=== PATIENT | female | born 2000 | race Caucasian/White ===

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

== ENCOUNTER 2018-02-02 20:04 | Emergency (ER) | payer OTHER ==
[~2018-02-02] VITALS: Ht 175.3 cm; Wt 96.0 kg
[~2018-02-02 20:04] MED LIST changes: +SPIR25TA6 PO; -SPR25 PO
[2018-02-02 20:07] VITALS: TEMP 36.7; Ht 175.3 cm; Wt 96.0 kg
[2018-02-02] MEDS ORDERED: IBUPROFEN 200 MG TAB PO STA (20:15)
[2018-02-02] MEDS ORDERED: CHOL1000 PO (20:38)
[2018-02-02] MEDS ORDERED: SUMA50TA15 PO (20:40)
--- NOTE | 2018-02-02 21:04 | DIAGNOSTIC IMAGING REPORT ---
L ANKLE MIN 3 VIEWS ROUTINE CLINICAL HISTORY: Left ankle pain.] For fracture COMPARISON: Left ankle radiographs January 16, 2017. FINDINGS: Alignment of the left ankle is anatomic. Talar dome is intact. There is no acute fracture. Mild ankle soft tissue swelling is noted. IMPRESSION: No acute fracture or dislocation of the left ankle. Electronically signed by: Rancho Enciso M.D. 02/02/2018 9:03 PM Dictated Date/Time: 02/02/2018 9:02 PM
--- NOTE | 2018-02-02 21:07 | DIAGNOSTIC IMAGING REPORT ---
L FOOT MIN 3 VIEWS ROUTINE CLINICAL HISTORY: Left foot pain. Evaluate for fracture. COMPARISON: Left foot radiographs January 16, 2017. FINDINGS: Tarsometatarsal joints are intact. No acute fracture within the left foot is identified. No osseous lesion is noted. IMPRESSION: No acute fracture or dislocation within the left foot. Electronically signed by: Rancho Enciso M.D. 02/02/2018 9:06 PM Dictated Date/Time: 02/02/2018 9:03 PM
[2018-02-02 21:32] VITALS: BP 130/81; PULSE 81; O2SAT 98
--- NOTE | 2018-02-02 22:10 | EMERGENCY ROOM VISIT NOTE ---
History Report prepared by [place]: Abram Carlisle Under the Supervision of: Dr. Kendall Contreras M.D. First contact with patient: 20:10 Chief Complaint: ANKLE PAIN Stated Complaint: LEFT ANKLE PAIN History of Present Illness The patient is a 17 year old female who presents to the Emergency Room with complaints of left ankle/foot pain for the past few hours. The patient states she was walking with her friends when she tripped and rolled her ankle backwards. She denies hitting her head and denies pain anywhere else. She denies any numbness/tingling to her foot or ankle. The patient does note she has a history of Factor 5 but isn't on any blood thinners. She denies any chance of being . Source of History: patient Onset: few hours Position: ankle (left), foot (left) Symptom Intensity: minimal Quality: ache Timing: constant Modifying Factors (Worsening): movement Modifying Factors (Relieving): rest Associated Symptoms: No LOC, No weakness, No numbness Review of Systems See HPI for pertinent positives & negatives. A total of 4 systems reviewed and were otherwise negative. Musculoskeletal: + problem reported (left ankle/foot pain) Neurologic: + problem reported (did not hit head and denies LOC), No numbness/tingling Past Medical & Surgical Medical Problems: (1) Appendectomy (2) Concussion (3) Exercise-induced asthma (4) Vesicoureteral reflux Family History Diabetes mellitus FH: cancer FH: gallbladder disease FH: heart disease FH: kidney disease FH: seizures Hypertension Social History Smoking Status: Never Smoker Alcohol Use: none Drug Use: none Marital Status: single Housing Status: lives with family Occupation Status: employed Current/Historical Medications Scheduled Cholecalciferol (Vitamin D3), 1,000 UNITS PO DAILY Fluoxetine Hcl (Prozac), 40 MG PO DAILY Multivitamin (Multivitamin), 1 TAB PO DAILY Norethindrone (Contraceptive) (Norethindrone), 0.35 MG PO DAILY Omeprazole (Prilosec), 40 MG PO DAILY Spironolactone (Spironolactone), 25 MG PO DAILY Topiramate (Topiramate), 25 MG PO BID Scheduled PRN Sumatriptan Succinate (Imitrex), 50 MG PO UD PRN for Migraine Allergies Coded Allergies: Cephalosporins (Unverified Allergy, Mild, DIFFICULTY BREATHING, 8/12/18) Sulfa Drugs (Unverified Allergy, Mild, 02/02/18) Penicillins (Verified Allergy, Unknown, AMOXICILLIN, 02/02/18) Physical Exam Vital Signs Date Time Temp Pulse Resp B/P (MAP) Pulse Ox O2 Delivery O2 Flow Rate FiO2 02/02/18 21:32 81 19 130/81 98 02/02/18 20:07 36.7 96 18 123/84 97 Room Air Physical Exam Constitutional: Vital signs reviewed. Musculoskeletal: No joint laxity. No peripheral edema. Tenderness with palpation noted along the dorsum of the foot without deformity. Normal distal pulses. No significant tenderness to the ankle. No tenderness proximal to the ankle. Integumentary: No cyanosis. Neurological: The patient is awake and alert. No focal deficits. Psychiatric: Normal affect. Medical Decision & Procedures ER Provider Diagnostic Interpretation: L ANKLE MIN 3 VIEWS ROUTINE CLINICAL HISTORY: Left ankle pain.] For fracture COMPARISON: Left ankle radiographs January 16, 2017. FINDINGS: Alignment of the left ankle is anatomic. Talar dome is intact. There is no acute fracture. Mild ankle soft tissue swelling is noted. IMPRESSION: No acute fracture or dislocation of the left ankle. L FOOT MIN 3 VIEWS ROUTINE CLINICAL HISTORY: Left foot pain. Evaluate for fracture. COMPARISON: Left foot radiographs January 16, 2017. FINDINGS: Tarsometatarsal joints are intact. No acute fracture within the left foot is identified. No osseous lesion is noted. IMPRESSION: No acute fracture or dislocation within the left foot. Medications Administered Medications (Trade) Dose Ordered Sig/Singh Route Start Time Stop Time Status Last Admin Dose Admin Ibuprofen (Advil Tab) 400 mg NOW STAT PO 02/02/18 20:15 02/02/18 20:16 DC 02/02/18 20:28 400 MG ED Course Rechecks: 2114- Reviewed x-rays with patient. She verbalized understanding. All questions answered. Patient stable upon discharge. Medical Decision This is a 17-year-old female presents with foot and ankle pain after a fall. Differential diagnosis includes foot fracture, ankle fracture, sprain. I did evaluate the patient as noted above. I did obtain x-rays of the left ankle and foot. I did review the images myself as well as the radiology reports. There is no evidence of fracture or dislocation. She has no joint laxity on examination. She was placed in a gel splint and given crutches. She was advised to follow-up with her doctor and given a work note. She was treated with Motrin here. Medication Reconcilliation Current Medication List: was personally reviewed by me Blood Pressure Screening Patient's blood pressure: Normal blood pressure Impression Primary Impression: Sprain of left foot Additional Impression: Left ankle sprain Scribe Attestation The scribe's documentation has been prepared under my direct and personally reviewed by me in its entirety. I confirm that the note above accurately reflects all work, treatment, procedures, and medical decision making performed by me. Departure Information Dispostion Home / Self-Care Referrals Maria D Mohamud M.D. (PCP) Forms HOME CARE DOCUMENTATION FORM, IMPORTANT VISIT INFORMATION Patient Instructions My [facility] Problem Qualifiers Primary Impression: Sprain of left foot Encounter type: initial encounter Qualified Codes: S93.602A - Unspecified sprain of left foot, initial encounter Additional Impression: Left ankle sprain Encounter type: initial encounter Involved ligament of ankle: unspecified ligament Qualified Codes: S93.402A - Sprain of unspecified ligament of left ankle, initial encounter
== END 2018-02-02 21:34 | disposition home or self-care (01) ==
LOC: C.EDB 20:05 → C.EDD 21:34
DX: S93.602A Unspecified sprain of left foot, initial encounter (principal); S93.402A Sprain of unspecified ligament of left ankle, initial encounter; X50.9XXA Other and unspecified overexertion or strenuous movements or postures, initial encounter; Y93.01 Activity, walking, marching and hiking; D68.2 Hereditary deficiency of other clotting factors; Z79.3 Long term (current) use of hormonal contraceptives; Z79.899 Other long term (current) drug therapy; Z88.0 Allergy status to penicillin; Z88.1 Allergy status to other antibiotic agents; Z88.2 Allergy status to sulfonamides

== ENCOUNTER 2022-06-12 07:30 | Inpatient (IN) ==
[2022-06-12] MEDS ORDERED: OXYTOCIN 30 UNITS/500 ML BAG IV PRN ×2 (07:36)
[2022-06-12] MEDS ORDERED: LIDOCAINE 1% LOCAL 20 ML VIAL INFIL PRN (07:36)
[2022-06-12] MEDS ORDERED: PENICILLIN G POTASSIUM 6 MU in DEXTROSE 5% 250 ML IV STA (08:42)
[2022-06-12 08:49] LABS: Hematocrit (blood only) 41.5 % (34.1-44.9); Hemoglobin 14.9 g/dl (12.0-16.0); Mean Corpuscular Hemoglobin 31.2 pg (25.0-34.0); Mean Corpuscular Hgb Conc 35.9 g/dL (32.0-36.0); Mean Corpuscular Volume 86.8 fL (80.0-100.0); Mean Platelet Volume 9.7 fL (9.4-12.3); Platelet Count 176 K/uL (130-400); RDW Coefficient of Variation 12.7 % (11.5-14.5); RDW Standard Deviation 40.1 fL (36.4-46.3); Red Blood Count 4.78 M/uL (3.93-5.22); White Blood Count 9.69 K/ul (4.8-10.8)
[2022-06-12] MEDS ORDERED: SODIUM CHLORIDE 0.9% 250 ML IV PRN (09:06)
[2022-06-12] MEDS: LACTATED RINGER'S 1,000 ML IV PRN ×2 (09:09→18:31)
--- NOTE | 2022-06-12 09:49 | History & Physical Report ---
Date of Service June 12, 2022 Assessment & Plan (1) : (2) Factor V Leiden mutation complicating : Plan 21 yo at 39 2/7 wga presents for IOL VSS Fetus cat 1 Labor - 35cc womack placed, pt tolerated well. Will do pit/womack GBS+, pcn ordered epidural PRN Admission and Anticipated Discharge Date Admission Date: June 12, 2022 History of Present Illness Chief Complaint: IOL Primary Care Provider: NO PCP 21 yo at 39 2/7 wga w/ MIMI by LMP presents for IOL for coordination of care due to heparin. +FM; denies regular ctx, LOF, VB. 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 SAB G2 current regular cycles denies hx STIs Allergies Allergy/AdvReac Type Severity Reaction Status Date / Time Cephalosporins Allergy Mild DIFFICULTY Verified 06/12/22 09:11 BREATHING Home Medications Medication Instructions Recorded Confirmed Type vitamin with calcium 1 tab PO DAILY #30 tabs 02/08/22 06/12/22 Rx no.72-iron 27 mg-folic acid 1 mg tablet ( Plus (calcium carbonate)) enoxaparin 40 mg/0.4 mL 40 mg subcut DAILY 04/12/22 06/12/22 History subcutaneous syringe heparin (porcine) 5,000 unit/mL (1 5,000 unit subcut BID 06/07/22 06/12/22 History mL) injection cartridge Patient History Medical History Abnormal weight gain Allergic rhinitis Anxiety and depression Asthma Chronic headaches Concussion (12/02/12) Constipation Depression with anxiety Exercise-induced asthma (12/02/12) Factor V Leiden mutation Factor V Leiden mutation complicating heterozygote status GERD without esophagitis Gout History of chicken pox Kidney stone Migraine Nephrolithiasis Oligomenorrhea Polycystic ovarian syndrome Secondary amenorrhea Surgical History S/P appendectomy S/P cholecystectomy S/P ureteral stent placement Family History Mother Hypertension Diabetes Grandmother (Maternal) Hypertension Diabetes Denies family history of Ovarian cancer Breast cancer Colorectal cancer Social History Smoking Status: Never smoker Second Hand Exposure: No; Hx Alcohol Use: No Hx Substance Use: No Preferred Language: Tajik Communication Ability: Effective Visual Impairment: Limited Hearing Ability: Normal 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 Beliefs That Will Affect Care: None marital status: Single marital status details: fob Aram Scarlett (29) [phone] Current Living Situation: Significant Other Current Living Situation Comment: Aram Scralett current occupational status: unemployed Feels Safe at Home: Yes Gender Identity: Female Assistive Devices: Glasses Physical Exam Genitourinary: OB Exam Abdomen: + vertex (confirmed by BSUS) and + estimated weight (7-8) Manual OB Exam: + cervical dilation (1.5), + cervical effacement 50% and + station -2 OB Exam Monitor Tracing: + external FHT monitor used, + external uterine monitor used (irreg) and + category I (150/mod/+accel/-decel) Results & Data ([facility]) Vital Signs (Past 12 Hours) Vital Signs Temp Pulse Resp BP 06/12/22 08:10 98.4 F 97 H 18 122/72 06/12/22 07:48 97 H 122/72 Laboratory Results OB Labs: Blood Type O Positive 11/07/21 Antibody Screen NEGATIVE 11/07/21 Hemoglobin 15.3 g/dl (12.0-16.0) 06/07/22 Hematocrit 41.7 % (34.1-44.9) 06/07/22 Mean Corpuscular Volume 87.2 fL (80.0-100.0) 06/07/22 Platelet Count 157 K/uL (130-400) 06/07/22 Rubella IgG Antibody Equivocal (Immune) L 11/07/21 Rapid Plasma Reagin Nonreactive (Nonreactive) 11/07/21 E Hepatitis B Surface Antigen. NON-REACTIVE (NON-REACTIVE) 11/07/21 Hepatitis C Antibody (EIA) NON-REACTIVE (NON-REACTIVE) 11/07/21 HIV (1&2) Ag and Ab Confirmation NON-REACTIVE (NON-REACTIVE) 11/07/21 Glucose 1 Hour 50 gm Load 116 mg/dl (70-130) 03/26/22 OB Optional Labs: Chlamydia trachomatis RNA NOT DETECTED (NOT DETECTED) 11/07/21 Neisseria gonorrhoeae RNA NOT DETECTED (NOT DETECTED) 11/07/21 Thyroid Stimulating Hormone (TSH) 0.464 uIu/ml (0.300-4.500) 11/04/21 Labs Reviewed: neg cf/sma--[facility] low risk panorama--[facility] GBS+ Diagnostic Findings post plac Coding Level of Care Code None Diagnoses Z34.90 Factor V Leiden mutation complicating O99.119; D68.51
[2022-06-12] MEDS: PENICILLIN G POTASSIUM 3 MU in DEXTROSE 5% 100 ML IV PRN ×3 (13:42→22:44)
--- NOTE | 2022-06-12 15:00 | Labor Progress Brief Note ---
Date of Service June 12, 2022 Subjective feeling better w/ womack bulb out Assessment & Plan (1) : (2) Factor V Leiden mutation complicating : Plan 21 yo at 39 2/7 wga presents for IOL VSS Fetus cat 1 Labor - s/p womack, good progress. Will plan for arom with next check GBS+, pcn ordered epidural PRN Admission and Anticipated Discharge Date Admission Date: June 12, 2022 Physical Exam Genitourinary: Manual OB Exam: + cervical dilation (3-4), + cervical effacement 50% and + station -2 OB Exam Monitor Tracing: + external FHT monitor used, + external uterine monitor used (q3-4) and + category I (140/mod/+accel/-decel) Results & Data ([facility]) Vital Signs (Past 12 Hours) Vital Signs Temp Pulse Resp BP 06/12/22 08:10 98.4 F 97 H 18 122/72 06/12/22 14:53 82 06/12/22 14:53 124/72 06/12/22 13:40 85 06/12/22 13:40 127/86 06/12/22 12:06 84 06/12/22 12:06 124/77 06/12/22 11:30 18 06/12/22 11:30 18 06/12/22 10:55 67 06/12/22 10:55 131/73 06/12/22 10:00 18 06/12/22 10:00 18 06/12/22 07:48 97 H 122/72 Coding Level of Care Code None Diagnoses Z34.90 Factor V Leiden mutation complicating O99.119; D68.51
--- NOTE | 2022-06-12 17:15 | Anesthesiology Consultation ---
Date of Service June 12, 2022 Assessment & Plan (1) Encounter for pre-operative examination: Chart Review Chart Review: Patient NOT seen in Pre Admission Testing and Acceptable Risk for Labor Epidural Consults Requested none History Height/Weight Height: 5 ft 9 in Weight: 106.594 kg Allergies Allergy/AdvReac Type Severity Reaction Status Date / Time Cephalosporins Allergy Mild DIFFICULTY Verified 06/12/22 09:11 BREATHING Medications Home Medications Medication Instructions Recorded Confirmed Last Taken vitamin with calcium 1 tab PO DAILY #30 tabs 02/08/22 06/12/22 06/11/22 no.72-iron 27 mg-folic acid 1 mg tablet ( Plus (calcium carbonate)) enoxaparin 40 mg/0.4 mL 40 mg subcut DAILY 04/12/22 06/12/22 06/05/22 12:00 subcutaneous syringe heparin (porcine) 5,000 unit/mL (1 5,000 unit subcut BID 06/07/22 06/12/22 06/11/22 22:00 mL) injection cartridge Active Medications Generic Name Dose Route Start Last Admin Trade Name Freq PRN Reason Stop Dose Admin Oxytocin 30 units in 500 mls @ 10 mls/hr 06/12/22 07:36 06/12/22 15:15 Pitocin IV 06/14/22 07:35 0.6 units/hr .Q24H PRN 10 mls/hr Labor Induction/Augmentation Titration Protocol 0.6 UNITS/HR Lactated Ringer's 1,000 mls @ 125 mls/hr 06/12/22 07:36 06/12/22 09:09 Lr IV 06/14/22 07:35 125 mls/hr .Q8H PRN Administration L&D Protocol Protocol Penicillin G Potassium 3 mu/ 106 mls @ 100 mls/hr 06/12/22 11:22 06/12/22 14 :45 Dextrose IV 06/22/22 11:21 Infused Q4H PRN Infusion GBS(+) Until Delivery Past Medical History Medical History Abnormal weight gain Allergic rhinitis Anxiety and depression Asthma Chronic headaches Concussion (12/02/12) Constipation Depression with anxiety Exercise-induced asthma (12/02/12) Factor V Leiden mutation Factor V Leiden mutation complicating heterozygote status GERD without esophagitis Gout History of chicken pox Kidney stone Migraine Nephrolithiasis Oligomenorrhea Polycystic ovarian syndrome Secondary amenorrhea Past Family History Family History Mother Hypertension Diabetes Grandmother (Maternal) Hypertension Diabetes Denies family history of Ovarian cancer Breast cancer Colorectal cancer Past Surgical History Surgical History S/P appendectomy S/P cholecystectomy S/P ureteral stent placement Social History Smoking Status: Never smoker Hx Alcohol Use: No Hx Substance Use: No substance use type: does not use Physical Exam Vital Signs Last Vital Signs Temp 97.7 F 06/12/22 15:15 Pulse 82 06/12/22 14:53 Resp 18 06/12/22 15:15 BP 124/72 06/12/22 14:53 Testing Laboratory Results 06/12/22 08:11 Blood Type O Positive 06/12/22 08:11 Antibody Screen NEGATIVE 06/12/22 08:11
[2022-06-12] MEDS ORDERED: diphenhydrAMINE 50 MG/ML VIAL IV PRN (17:16)
[2022-06-12] MEDS ORDERED: ePHEDrine sulfate 50 MG/ML AMP IV PRN (17:16)
[2022-06-12] MEDS ORDERED: fentaNYL 2MCG/ML ROPIVACAINE 1.25MG/ML 100 ML BAG EPI PRN (17:16)
[2022-06-12] MEDS ORDERED: NALBUPHINE HCL INJ 10 MG/ML AMP IV PRN (17:16)
[2022-06-12] MEDS ORDERED: NALOXONE HCL 1 MG in SODIUM CHLORIDE 0.9% 1000ML 1,000 ML IV PRN (17:16)
[2022-06-12] MEDS ORDERED: NALOXONE HCL 0.4 MG/1 ML VIAL/CARP IV PRN (17:16)
[2022-06-12] MEDS ORDERED: ePHEDrine sulfate 50 MG/ML AMP ONE (17:24)
[2022-06-12] MEDS ORDERED: fentaNYL citrate 100 MCG/2 ML VIAL ONE (17:25)
[2022-06-12] MEDS ORDERED: SODIUM CHLORIDE 0.9% INJ 10 ML VIAL ONE (17:25)
[2022-06-12] MEDS ORDERED: BUPIVACAINE 0.25% 30 ML VIAL ONE (17:25)
[2022-06-12] MEDS ORDERED: LIDOCAINE 2%/EPINEPHRINE 1:200,000 20 ML SDV ONE (17:25)
[2022-06-12] MEDS ORDERED: fentaNYL 2MCG/ML ROPIVACAINE 1.25MG/ML 100 ML BAG EPI ONE (17:26)
--- NOTE | 2022-06-12 19:07 | Labor Progress Brief Note ---
Date of Service June 12, 2022 Subjective comfortable w/ epidural Assessment & Plan (1) : (2) Factor V Leiden mutation complicating : Plan 21 yo at 39 2/7 wga presents for IOL VSS Fetus cat 1 Labor - now s/p arom, pit at 12. Delay in check due to other pt care GBS+, pcn ordered epidural in place Admission and Anticipated Discharge Date Admission Date: June 12, 2022 Physical Exam Genitourinary: Manual OB Exam: + cervical dilation 4 cm, + cervical effacement 50%, + station -2 and + amniotic fluid (arom) clear OB Exam Monitor Tracing: + external FHT monitor used, + external uterine monitor used (q3-4) and + category I (145/mod/+accel/-decel) Results & Data ([facility]) Vital Signs (Past 12 Hours) Vital Signs Temp Pulse Resp BP Pulse Ox 06/12/22 08:10 98.4 F 97 H 18 122/72 06/12/22 19:03 96 06/12/22 19:03 91 H 06/12/22 18:58 96 06/12/22 18:58 94 H 06/12/22 18:53 97 06/12/22 18:53 99 H 06/12/22 18:52 96 H 06/12/22 18:52 125/75 06/12/22 18:48 97 06/12/22 18:48 90 06/12/22 18:43 96 06/12/22 18:43 94 H 06/12/22 18:38 96 06/12/22 18:38 110 H 06/12/22 18:35 102 H 06/12/22 18:35 117/58 L 06/12/22 18:33 96 06/12/22 18:33 107 H 06/12/22 18:30 94 H 06/12/22 18:30 105/55 L 06/12/22 18:28 96 06/12/22 18:28 95 H 06/12/22 18:15 18 06/12/22 18:15 18 06/12/22 18:25 104 H 06/12/22 18:25 102/61 06/12/22 18:23 96 06/12/22 18:23 104 H 06/12/22 18:21 100 H 06/12/22 18:21 102/62 06/12/22 18:18 96 06/12/22 18:18 96 H 06/12/22 18:15 99 H 06/12/22 18:15 96/63 L 06/12/22 18:13 96 06/12/22 18:13 107 H 06/12/22 18:08 97 06/12/22 18:08 91 H 06/12/22 18:08 100/64 06/12/22 18:05 100 H 06/12/22 18:05 96/54 L 06/12/22 18:03 96 06/12/22 18:03 97 H 06/12/22 18:02 99 H 06/12/22 18:02 104/59 L 06/12/22 18:00 95 H 06/12/22 18:00 99/71 L 06/12/22 17:58 98 06/12/22 17:58 98 H 06/12/22 17:56 100 H 06/12/22 17:56 118/77 06/12/22 17:53 98 H 06/12/22 17:53 122/83 06/12/22 17:49 18 06/12/22 17:49 98.1 F 18 06/12/22 17:50 101 H 06/12/22 17:50 124/79 06/12/22 15:15 18 06/12/22 15:15 97.7 F 18 06/12/22 14:53 82 06/12/22 14:53 124/72 06/12/22 13:40 85 06/12/22 13:40 127/86 06/12/22 12:06 84 06/12/22 12:06 124/77 06/12/22 11:30 18 06/12/22 11:30 18 06/12/22 10:55 67 06/12/22 10:55 131/73 06/12/22 10:00 18 06/12/22 10:00 18 06/12/22 07:48 97 H 122/72 Coding Level of Care Code None Diagnoses Z34.90 Factor V Leiden mutation complicating O99.119; D68.51
--- NOTE | 2022-06-12 22:11 | Labor Progress Brief Note ---
Date of Service June 12, 2022 Subjective comfortable w/ epidural, occasional discomfort Assessment & Plan (1) : (2) Factor V Leiden mutation complicating : Plan 21 yo at 39 2/7 wga presents for IOL VSS Fetus cat 1 Labor - pit at 20, IUPC placed. Will see if makes any change, will increase max to 30. If no change, then will do pit break GBS+, pcn ordered epidural in place Admission and Anticipated Discharge Date Admission Date: June 12, 2022 Physical Exam Genitourinary: Manual OB Exam: + cervical dilation 4 cm, + cervical effacement 70% and + station -2 OB Exam Monitor Tracing: + external FHT monitor used, + intra-uterine pressure catheter used (placed, q3-5) and + category I (140/mod/+accel/-decel) Results & Data ([facility]) Vital Signs (Past 12 Hours) Vital Signs Temp Pulse Resp BP Pulse Ox 06/12/22 22:03 96 06/12/22 22:03 75 06/12/22 21:58 96 06/12/22 21:58 79 06/12/22 21:53 96 06/12/22 21:53 85 06/12/22 21:53 81 06/12/22 21:53 120/59 L 06/12/22 21:05 97.9 F 06/12/22 21:48 96 06/12/22 21:48 80 06/12/22 21:43 96 06/12/22 21:43 80 06/12/22 21:38 96 06/12/22 21:37 83 06/12/22 21:38 79 06/12/22 21:37 120/67 06/12/22 21:33 96 06/12/22 21:33 79 06/12/22 21:28 96 06/12/22 21:28 87 06/12/22 21:23 96 06/12/22 21:23 86 06/12/22 21:23 82 06/12/22 21:23 121/60 06/12/22 21:18 97 06/12/22 21:18 92 H 06/12/22 21:13 96 06/12/22 21:13 74 06/12/22 21:08 97 06/12/22 21:08 83 06/12/22 21:07 76 12/20/22 21:07 111/65 2022 21:03 98 2022 21:03 95 H 22 20:58 97 22 20:58 100 H 22 20:53 96 22 20:53 85 22 20:52 94 H 2022 20:52 100/57 L 06/12/22 20:51 94 2022 20:51 89 2022 20:48 96 2022 20:48 89 2022 20:45 94 2022 20:45 97 H 22 20:43 95 06/12/22 20:43 84 06/12/22 20:38 94 06/12/22 20:38 87 22 20:37 86 06/12/22 20:37 96/54 L 06/12/22 20:33 96 06/12/22 20:33 98 H 06/12/22 20:28 95 06/12/22 20:28 99 H 06/12/22 20:27 94 06/12/22 20:27 93 H 2022 20:23 96 20 20:23 92 H 2022 20:23 88 20 20:23 103/56 L 06/12/22 20:18 95 06/12/22 20:18 89 20 20:13 96 2022 20:13 92 H 2022 20:08 97 20 20:08 100 H 06/12/22 20:07 86 2022 20:07 116/66 22 20:03 95 2022 20:03 87 2022 20:02 94 2022 20:02 78 2022 19:58 95 2022 19:58 77 2022 19:56 94 2022 19:56 80 2022 19:53 94 2022 19:53 84 2022 19:53 80 2022 19:53 113/61 2022 19:48 94 2022 19:48 81 06/12/22 19:43 94 06/12/22 19:43 83 06/12/22 19:42 94 06/12/22 19:42 79 06/12/22 19:38 94 06/12/22 19:38 83 06/12/22 19:37 83 06/12/22 19:37 118/63 06/12/22 19:37 94 06/12/22 19:37 85 06/12/22 19:33 95 06/12/22 19:33 86 06/12/22 19:07 18 06/12/22 19:07 98.1 F 18 06/12/22 19:28 94 06/12/22 19:28 83 06/12/22 19:25 94 06/12/22 19:25 92 H 06/12/22 19:23 95 06/12/22 19:23 87 06/12/22 19:22 76 06/12/22 19:22 128/76 06/12/22 19:18 95 06/12/22 19:18 90 06/12/22 19:16 94 06/12/22 19:16 87 06/12/22 19:13 95 06/12/22 19:13 89 06/12/22 19:00 18 06/12/22 19:00 18 06/12/22 19:08 95 06/12/22 19:08 87 06/12/22 19:07 86 06/12/22 19:07 125/75 06/12/22 19:03 96 06/12/22 19:03 91 H 06/12/22 18:58 96 06/12/22 18:58 94 H 06/12/22 18:53 97 06/12/22 18:53 99 H 06/12/22 18:52 96 H 06/12/22 18:52 125/75 06/12/22 18:48 97 06/12/22 18:48 90 06/12/22 18:43 96 06/12/22 18:43 94 H 06/12/22 18:38 96 06/12/22 18:38 110 H 06/12/22 18:35 102 H 06/12/22 18:35 117/58 L 06/12/22 18:33 96 06/12/22 18:33 107 H 06/12/22 18:30 94 H 06/12/22 18:30 105/55 L 06/12/22 18:28 96 06/12/22 18:28 95 H 06/12/22 18:15 18 06/12/22 18:15 18 06/12/22 18:25 104 H 06/12/22 18:25 102/61 06/12/22 18:23 96 06/12/22 18:23 104 H 06/12/22 18:21 100 H 06/12/22 18:21 102/62 06/12/22 18:18 96 06/12/22 18:18 96 H 06/12/22 18:15 99 H 06/12/22 18:15 96/63 L 06/12/22 18:13 96 06/12/22 18:13 107 H 06/12/22 18:08 97 06/12/22 18:08 91 H 06/12/22 18:08 100/64 06/12/22 18:05 100 H 06/12/22 18:05 96/54 L 06/12/22 18:03 96 06/12/22 18:03 97 H 06/12/22 18:02 99 H 06/12/22 18:02 104/59 L 06/12/22 18:00 95 H 06/12/22 18:00 99/71 L 06/12/22 17:58 98 06/12/22 17:58 98 H 06/12/22 17:56 100 H 06/12/22 17:56 118/77 06/12/22 17:53 98 H 06/12/22 17:53 122/83 06/12/22 17:49 18 06/12/22 17:49 98.1 F 18 06/12/22 17:50 101 H 06/12/22 17:50 124/79 06/12/22 15:15 18 06/12/22 15:15 97.7 F 18 06/12/22 14:53 82 06/12/22 14:53 124/72 06/12/22 13:40 85 06/12/22 13:40 127/86 06/12/22 12:06 84 06/12/22 12:06 124/77 06/12/22 11:30 18 06/12/22 11:30 18 06/12/22 10:55 67 06/12/22 10:55 131/73 Coding Level of Care Code None Diagnoses Z34.90 Factor V Leiden mutation complicating O99.119; D68.51
--- NOTE | 2022-06-13 00:18 | Delivery Summary ---
Vaginal Delivery Summary Date of Service June 13, 2022 Vaginal Delivery Summary and 2nd Degree LAC PREOPERATIVE DIAGNOSIS: 1. Single intrauterine at 39 3/7 wga 2. Factor V Leiden Heterozygote on Anticoagulation 3. Resolved FGR 4. GBS+ POSTOPERATIVE DIAGNOSIS: 1. Single intrauterine at 39 3/7 wga 2. Factor V Leiden Heterozygote on Anticoagulation 3. Resolved FGR 4. GBS+ 5. Delivered PROCEDURE: 1. Normal spontaneous vaginal delivery. SURGEON: Sandra Allen MD ANESTHESIA: Epidural. ESTIMATED BLOOD LOSS: 400 mL FLUIDS: Continuous LR. URINE OUTPUT: None. COMPLICATIONS: None. CONDITION: Stable. INDICATIONS: 21 yo at 39 3/7 presented today for planned IOL for coordination of care due to anticoagulation. Last dose of heparin last evening. She was started on penicillin for GBS+ prophylaxis. Induction was begun with womack bulb and pitocin. Following womack bulb expulsion, pitocin was titrated up. She received an epidural for pain control. She had AROM and progressed to complete at which point decels were noted. Pitocin was stopped, fetus resolved and she desired to push. FINDINGS: A viable female , weight pending with Apgars of 9 and 10 at 1 and 5 minutes respectively. SPECIMEN: Cord blood, placenta OPERATIVE REPORT: The patient progressed to 10 cm, 100% effaced and +2 station, pushed over intact perineum with anesthesia to deliver a viable female , weight and Apgars as above. Head of delivered in NOAH position. Tight nuchal/body cord was noted and delivered through. Body and shoulders were delivered without difficulty. was delivered to maternal abdomen and nursing staff. Delayed cord clamping was performed for 60 seconds. Cord was clamped and cut. Cord blood was obtained. Placenta delivered spontaneously intact with 3-vessel cord. IV oxytocin and fundal massage were given for excellent hemostasis. Vagina, cervix, perineum, and placenta were inspected. A second degree laceration was noted and repaired using 3-0 vicryl in the usual fashion. There was good hemostasis. Sponge and needle counts correct x2. No sponges were left behind. Mother and stable in immediate period. [facility] Vaginal Delivery Charge Vaginal Delivery Codes: 08561 global code for the antepartum, delivery, and post- Delivery Type Details: and 2nd Degree LAC
[2022-06-13] MEDS ORDERED: ACETAMINOPHEN 325 MG TAB PO PRN (00:25)
[2022-06-13] MEDS ORDERED: HYDROCORTISONE ACETATE 25 MG SUPP PR PRN (00:25)
[2022-06-13] MEDS ORDERED: OXYTOCIN 30 UNITS/500 ML BAG IV PRN (00:25)
[2022-06-13] MEDS ORDERED: MEASLES, MUMPS & RUBELLA VIRUS VIAL SQ ONE (00:25)
[2022-06-13] MEDS ORDERED: BENZOCAINE 20% AER SPR 82.5 GM CAN EXT PRN (00:25)
[2022-06-13] MEDS ORDERED: bisacodyL 10 MG SUPP PR PRN (00:25)
[2022-06-13] MEDS ORDERED: DIPHTHERIA/TETANUS/PERTUSSIS 0.5 ML SYR/VIAL IM ONE (00:25)
--- NOTE | 2022-06-13 05:08 | Obstetrical Progress Note ---
Date of Service June 13, 2022 Assessment & Plan (1) care following vaginal delivery: Plan - Overall, feeling well and eating well today - Infant feeding going well (per nursing), mother concerned about infant latch, assistance offered - Urinating and passing gas appropriately - Ambulating well in room - Pain controlled, epidural catheter still in place - Hgb 14.9 on 06/12 - Vitals stable and wnl - Factor 5 Leiden: Plan Lovenox 40 mg SQ for 6 weeks PP - GBS +: Received PCN - Routine PP care progressing well - Anticipate discharge @ 24-48 hours PP, patient wishes to go home, recommended stay for at least 24 hours PP - Recommending f/u outpatient in 6 weeks Admission and Anticipated Discharge Date Admission Date: June 12, 2022 Supervising Physician Co-Signing Physician Notes Resident Physician Supervision Note: I interviewed and examined the patient. Discussed with Dr. Greenberg and agree with findings and plan as documented in the note. Any exceptions or clarifications are listed here: PP1 s/p , doing well. VSS, exam benign and wnl. Continue routine pp care, lovenox 40/d scheduled to start at noon today per heme recs and continue 6wks pp. Pt has rx from heme already Documented By: Sandra Allen MD Subjective Patient is a 21F who is PPD #1 following vaginal delivery at 39 3/7. She reports feeling well overall this morning and wishes to go home. - Ambulation - well throughout room - Voiding/Clark - independent voids, no dysuria or pressure - Gas/Stool - passing gas, no bowel movement - Diet - regular, no nausea or emesis - Lochia - diminishing, light amount - Feeding Type - breast feeding, concerns about infant latch - Pain Level - 0/10, controlled, epidural catheter still intact Review of Systems - Denies fever, chills, sweats - Denies shortness of breath, difficulty breathing, chest pain, palpitations, chest pressure. - Denies breast pain. - Denies dysuria. - Denies headache or changes in vision. Physical Exam Physical Exam: General: Alert, oriented. No acute distress. Cardiac: RRR, normal S1/S2, no murmurs/rubs/gallops. Respiratory: Non-labored, CTAB, no wheezes/rales/rhonchi. Symmetric chest rise. Abdomen: Soft, nontender, nondistended. Bowel sounds present. Uterus: Uterine fundus firm, palpable 3 cm below umbilicus. Lower Extremities: No lower extremity edema or swelling. No deep calf pain. Bentley's negative bilaterally. Results & Data ([facility]) Vital Signs (Past 12 Hours) Vital Signs Temp Pulse Pulse Resp BP BP Pulse Ox 06/13/22 03:00 36.8 C 86 16 119/79 96 06/13/22 01:52 94 H 115/60 06/13/22 01:37 92 H 18 112/59 L 06/13/22 01:22 89 116/64 06/13/22 01:07 96 H 18 129/68 06/13/22 00:52 96 H 18 136/63 06/13/22 00:37 108 H 18 139/63 06/13/22 00:22 96 H 18 139/63 06/13/22 00:07 36.8 C 96 H 18 119/67 06/12/22 23:53 97 06/12/22 23:53 100 H 06/12/22 23:52 106 H 06/12/22 23:52 117/59 L 06/12/22 23:48 97 06/12/22 23:48 98 H 06/12/22 23:43 97 06/12/22 23:43 100 H 06/12/22 23:38 95 06/12/22 23:38 138 H 06/12/22 23:37 93 H 06/12/22 23:37 121/63 06/12/22 23:33 100 06/12/22 23:33 88 06/12/22 23:28 100 06/12/22 23:28 79 06/12/22 23:23 100 06/12/22 23:23 77 06/12/22 23:22 78 06/12/22 23:22 122/65 06/12/22 23:18 100 06/12/22 23:18 100 H 06/12/22 23:13 100 06/12/22 23:13 83 06/12/22 23:08 100 06/12/22 23:08 82 06/12/22 23:07 75 06/12/22 23:07 127/77 06/12/22 22:45 36.7 C 06/12/22 23:03 100 06/12/22 23:03 77 20 22:58 99 06/12/22 22:58 83 06/12/22 22:53 98 06/12/22 22:53 79 06/12/22 22:53 110/68 06/12/22 22:48 97 06/12/22 22:48 81 06/12/22 22:43 97 06/12/22 22:43 84 06/12/22 22:38 97 06/12/22 22:38 81 06/12/22 22:38 78 20 22:38 108/64 06/12/22 22:33 96 06/12/22 22:33 82 06/12/22 22:28 98 06/12/22 22:28 76 06/12/22 22:23 95 06/12/22 22:23 68 06/12/22 22:23 126/69 06/12/22 22:18 96 06/12/22 22:18 76 06/12/22 22:13 95 06/12/22 22:13 75 06/12/22 22:08 97 06/12/22 22:08 80 06/12/22 22:09 71 06/12/22 22:09 128/63 06/12/22 22:03 96 06/12/22 22:03 75 06/12/22 21:58 96 22 21:58 79 06/12/22 21:53 96 2022 21:53 85 06/12/22 21:53 81 22 21:53 120/59 L 06/12/22 21:05 36.6 C 06/12/22 21:48 96 2022 21:48 80 2022 21:43 96 2022 21:43 80 2022 21:38 96 2022 21:37 83 2022 21:38 79 2022 21:37 120/67 2022 21:33 96 2022 21:33 79 2022 21:28 96 2022 21:28 87 2022 21:23 96 2022 21:23 86 2022 21:23 82 20/22 21:23 121/60 20/22 21:18 97 20/22 21:18 92 H 2022 21:13 96 2022 21:13 74 2022 21:08 97 20/22 21:08 83 20/22 21:07 76 20/22 21:07 111/65 2022 21:03 98 2022 21:03 95 H 22 20:58 97 2022 20:58 100 H 2022 20:53 96 2022 20:53 85 2022 20:52 94 H 22 20:52 100/57 L 06/12/22 20:51 94 2022 20:51 89 22 20:48 96 06/12/22 20:48 89 2022 20:45 94 22 20:45 97 H 06/12/22 20:43 95 06/12/22 20:43 84 22 20:38 94 22 20:38 87 2022 20:37 86 2022 20:37 96/54 L 06/12/22 20:33 96 20 20:33 98 H 22 20:28 95 22 20:28 99 H 06/12/22 20:27 94 2022 20:27 93 H 2022 20:23 96 2022 20:23 92 H 2022 20:23 88 2022 20:23 103/56 L 06/12/22 20:18 95 2022 20:18 89 2022 20:13 96 2022 20:13 92 H 2022 20:08 97 2022 20:08 100 H 2022 20:07 86 2022 20:07 116/66 22 20:03 95 2022 20:03 87 2022 20:02 94 2022 20:02 78 2022 19:58 95 20/22 19:58 77 06/12/22 19:56 94 06/12/22 19:56 80 06/12/22 19:53 94 06/12/22 19:53 84 06/12/22 19:53 80 06/12/22 19:53 113/61 06/12/22 19:48 94 06/12/22 19:48 81 06/12/22 19:43 94 06/12/22 19:43 83 06/12/22 19:42 94 06/12/22 19:42 79 06/12/22 19:38 94 06/12/22 19:38 83 06/12/22 19:37 83 06/12/22 19:37 118/63 06/12/22 19:37 94 06/12/22 19:37 85 06/12/22 19:33 95 06/12/22 19:33 86 06/12/22 19:07 18 06/12/22 19:07 36.7 C 18 06/12/22 19:28 94 06/12/22 19:28 83 06/12/22 19:25 94 06/12/22 19:25 92 H 06/12/22 19:23 95 06/12/22 19:23 87 06/12/22 19:22 76 06/12/22 19:22 128/76 06/12/22 19:18 95 06/12/22 19:18 90 06/12/22 19:16 94 06/12/22 19:16 87 06/12/22 19:13 95 06/12/22 19:13 89 06/12/22 19:00 18 06/12/22 19:00 18 06/12/22 19:08 95 06/12/22 19:08 87 06/12/22 19:07 86 06/12/22 19:07 125/75 06/12/22 19:03 96 06/12/22 19:03 91 H 06/12/22 18:58 96 06/12/22 18:58 94 H 06/12/22 18:53 97 06/12/22 18:53 99 H 06/12/22 18:52 96 H 06/12/22 18:52 125/75 06/12/22 18:48 97 06/12/22 18:48 90 06/12/22 18:43 96 06/12/22 18:43 94 H 06/12/22 18:38 96 06/12/22 18:38 110 H 06/12/22 18:35 102 H 06/12/22 18:35 117/58 L 06/12/22 18:33 96 06/12/22 18:33 107 H 06/12/22 18:30 94 H 06/12/22 18:30 105/55 L 06/12/22 18:28 96 06/12/22 18:28 95 H 06/12/22 18:15 18 06/12/22 18:15 18 06/12/22 18:25 104 H 06/12/22 18:25 102/61 06/12/22 18:23 96 06/12/22 18:23 104 H 06/12/22 18:21 100 H 06/12/22 18:21 102/62 06/12/22 18:18 96 06/12/22 18:18 96 H 06/12/22 18:15 99 H 06/12/22 18:15 96/63 L 06/12/22 18:13 96 06/12/22 18:13 107 H 06/12/22 18:08 97 06/12/22 18:08 91 H 06/12/22 18:08 100/64 06/12/22 18:05 100 H 06/12/22 18:05 96/54 L 06/12/22 18:03 96 06/12/22 18:03 97 H 06/12/22 18:02 99 H 06/12/22 18:02 104/59 L 06/12/22 18:00 95 H 06/12/22 18:00 99/71 L 06/12/22 17:58 98 06/12/22 17:58 98 H 06/12/22 17:56 100 H 06/12/22 17:56 118/77 06/12/22 17:53 98 H 06/12/22 17:53 122/83 06/12/22 17:49 18 06/12/22 17:49 36.7 C 18 06/12/22 17:50 101 H 06/12/22 17:50 124/79 O2 Del Method 06/13/22 03:00 Room Air 06/13/22 01:52 06/13/22 01:37 06/13/22 01:22 06/13/22 01:07 06/13/22 00:52 06/13/22 00:37 06/13/22 00:22 06/13/22 00:07 06/12/22 23:53 06/12/22 23:53 06/12/22 23:52 06/12/22 23:52 06/12/22 23:48 06/12/22 23:48 06/12/22 23:43 06/12/22 23:43 06/12/22 23:38 06/12/22 23:38 06/12/22 23:37 06/12/22 23:37 06/12/22 23:33 06/12/22 23:33 06/12/22 23:28 06/12/22 23:28 06/12/22 23:23 06/12/22 23:23 06/12/22 23:22 06/12/22 23:22 06/12/22 23:18 06/12/22 23:18 06/12/22 23:13 06/12/22 23:13 06/12/22 23:08 06/12/22 23:08 06/12/22 23:07 06/12/22 23:07 06/12/22 22:45 06/12/22 23:03 06/12/22 23:03 06/12/22 22:58 06/12/22 22:58 06/12/22 22:53 06/12/22 22:53 06/12/22 22:53 06/12/22 22:48 06/12/22 22:48 06/12/22 22:43 06/12/22 22:43 06/12/22 22:38 06/12/22 22:38 06/12/22 22:38 06/12/22 22:38 06/12/22 22:33 06/12/22 22:33 06/12/22 22:28 06/12/22 22:28 06/12/22 22:23 06/12/22 22:23 06/12/22 22:23 06/12/22 22:18 06/12/22 22:18 06/12/22 22:13 06/12/22 22:13 06/12/22 22:08 06/12/22 22:08 06/12/22 22:09 06/12/22 22:09 06/12/22 22:03 06/12/22 22:03 06/12/22 21:58 06/12/22 21:58 06/12/22 21:53 06/12/22 21:53 06/12/22 21:53 06/12/22 21:53 06/12/22 21:05 06/12/22 21:48 06/12/22 21:48 06/12/22 21:43 06/12/22 21:43 06/12/22 21:38 06/12/22 21:37 06/12/22 21:38 06/12/22 21:37 06/12/22 21:33 06/12/22 21:33 06/12/22 21:28 06/12/22 21:28 06/12/22 21:23 06/12/22 21:23 06/12/22 21:23 06/12/22 21:23 06/12/22 21:18 06/12/22 21:18 06/12/22 21:13 06/12/22 21:13 06/12/22 21:08 06/12/22 21:08 06/12/22 21:07 06/12/22 21:07 06/12/22 21:03 06/12/22 21:03 06/12/22 20:58 06/12/22 20:58 06/12/22 20:53 06/12/22 20:53 06/12/22 20:52 06/12/22 20:52 06/12/22 20:51 06/12/22 20:51 06/12/22 20:48 06/12/22 20:48 06/12/22 20:45 22 20:45 06/12/22 20:43 06/12/22 20:43 06/12/22 20:38 06/12/22 20:38 06/12/22 20:37 06/12/22 20:37 2022 20:33 06/12/22 20:33 20 20:28 06/12/22 20:28 06/12/22 20:27 06/12/22 20:27 06/12/22 20:23 06/12/22 20:23 06/12/22 20:23 06/12/22 20:23 06/12/22 20:18 06/12/22 20:18 06/12/22 20:13 06/12/22 20:13 06/12/22 20:08 06/12/22 20:08 06/12/22 20:07 06/12/22 20:07 06/12/22 20:03 06/12/22 20:03 06/12/22 20:02 06/12/22 20:02 06/12/22 19:58 06/12/22 19:58 06/12/22 19:56 06/12/22 19:56 06/12/22 19:53 06/12/22 19:53 06/12/22 19:53 06/12/22 19:53 06/12/22 19:48 06/12/22 19:48 06/12/22 19:43 06/12/22 19:43 06/12/22 19:42 06/12/22 19:42 06/12/22 19:38 06/12/22 19:38 06/12/22 19:37 06/12/22 19:37 06/12/22 19:37 06/12/22 19:37 06/12/22 19:33 06/12/22 19:33 06/12/22 19:07 06/12/22 19:07 06/12/22 19:28 06/12/22 19:28 06/12/22 19:25 06/12/22 19:25 06/12/22 19:23 06/12/22 19:23 06/12/22 19:22 06/12/22 19:22 06/12/22 19:18 06/12/22 19:18 06/12/22 19:16 06/12/22 19:16 06/12/22 19:13 06/12/22 19:13 06/12/22 19:00 06/12/22 19:00 06/12/22 19:08 06/12/22 19:08 06/12/22 19:07 06/12/22 19:07 06/12/22 19:03 06/12/22 19:03 06/12/22 18:58 06/12/22 18:58 06/12/22 18:53 06/12/22 18:53 06/12/22 18:52 06/12/22 18:52 06/12/22 18:48 06/12/22 18:48 06/12/22 18:43 06/12/22 18:43 06/12/22 18:38 06/12/22 18:38 06/12/22 18:35 06/12/22 18:35 06/12/22 18:33 06/12/22 18:33 06/12/22 18:30 06/12/22 18:30 06/12/22 18:28 06/12/22 18:28 06/12/22 18:15 06/12/22 18:15 06/12/22 18:25 06/12/22 18:25 06/12/22 18:23 06/12/22 18:23 06/12/22 18:21 06/12/22 18:21 06/12/22 18:18 06/12/22 18:18 06/12/22 18:15 06/12/22 18:15 06/12/22 18:13 06/12/22 18:13 06/12/22 18:08 06/12/22 18:08 06/12/22 18:08 06/12/22 18:05 06/12/22 18:05 06/12/22 18:03 06/12/22 18:03 06/12/22 18:02 06/12/22 18:02 06/12/22 18:00 06/12/22 18:00 06/12/22 17:58 06/12/22 17:58 06/12/22 17:56 06/12/22 17:56 06/12/22 17:53 06/12/22 17:53 06/12/22 17:49 06/12/22 17:49 06/12/22 17:50 06/12/22 17:50 Resident Activity Tracking Resident Involvement: Resident Care Provided Care Provided: OB Delivery
--- NOTE | 2022-06-13 06:56 | Anesthesia Procedure Note ---
Date of Service June 13, 2022 Anesthesia Post Epidural Note Vital Signs Vital Signs: Temp Pulse Resp BP Pulse Ox O2 Del Method 98.2 F 86 16 119/79 96 06/13/22 03:00 06/13/22 03:00 06/13/22 03:00 06/13/22 03:00 06/13/22 03:00 06/13/22 03:00 Notes Mental Status: alert / awake / arousable and participated in evaluation Nausea / Vomiting: adequately controlled Pain: adequately controlled Airway Patency, RR, SpO2: stable & adequate BP & HR: stable & adequate Hydration State: stable & adequate Neuraxial Anesthesia: was administered and sensory block is resolving Anesthetic Complications: no major complications apparent and Pt Satisfied with anesthetic care Epidural: Removed without complications and With tip intact
[2022-06-13] MEDS: PRENATAL VITAMIN 1 TAB PO SCH (07:48)
[2022-06-13] MEDS: IBUPROFEN 600 MG TAB PO PRN ×3 (07:48→19:57)
[2022-06-13] MEDS: DOCUSATE SODIUM 100 MG CAP PO SCH ×2 (07:48→19:57)
[2022-06-13] MEDS: FERROUS SULFATE 325 MG TAB PO SCH (07:48)
[2022-06-13] MEDS ORDERED: ENOXAPARIN INJ 40 MG/0.4 ML SYR SQ SCH (12:00)
--- NOTE | 2022-06-14 05:15 | Obstetrical Progress Note ---
Date of Service June 14, 2022 Assessment & Plan (1) care following vaginal delivery: Plan - Overall, feeling well and eating well today - Infant feeding going well - Urinating and passing gas appropriately - Ambulating well in room - Pain controlled w/ Ibuprofen - Hgb 14.9 on 06/12 - Vitals stable and wnl - Factor 5 Leiden: Plan Lovenox 40 mg SQ for 6 weeks PP, has Rx at home from museum [facility] - GBS +: Received PCN - Routine PP care progressing well - Anticipate discharge today - Recommending f/u outpatient in 6 weeks Admission and Anticipated Discharge Date Admission Date: June 12, 2022 Supervising Physician Co-Signing Physician Notes Resident Physician Supervision Note: I was present with Dr. Greenberg during the history and exam. I discussed the case with the resident and agree with the findings and plan as documented in the note. Any exceptions or clarifications are listed here: stable, ready for dc home. plan routine pp check 6wk and instructions reviewed. breast feeding. has script for her lovenox. Documented By: Lety Garcia MD, FACOG Subjective Patient is a 21F who is PPD #2 following vaginal delivery at 39 3/7. She reports feeling well overall this morning and wishes to go home. - Ambulation - well throughout room - Voiding/Clark - independent voids, no dysuria or pressure - Gas/Stool - passing gas, no bowel movement - Diet - regular, no nausea or emesis - Lochia - diminishing, light amount - Feeding Type - breast feeding w/o concern - Pain Level - 5/10, controlled w/ ibuprofen Review of Systems - Denies fever, chills, sweats - Denies shortness of breath, difficulty breathing, chest pain, palpitations, chest pressure. - Denies breast pain. - Denies dysuria. - Denies headache or changes in vision. Physical Exam Physical Exam: General: Alert, oriented. No acute distress. Cardiac: RRR, normal S1/S2, no murmurs/rubs/gallops. Respiratory: Non-labored, CTAB, no wheezes/rales/rhonchi. Symmetric chest rise. Abdomen: Soft, nontender, nondistended. Bowel sounds present. Uterus: Uterine fundus firm, palpable 3 cm below umbilicus. Lower Extremities: No lower extremity edema or swelling. No deep calf pain. Bentley's negative bilaterally. Results & Data ([facility]) Vital Signs (Past 12 Hours) Vital Signs Temp Pulse Resp BP Pulse Ox O2 Del Method 06/13/22 23:53 36.8 C 82 18 110/73 98 Room Air 06/13/22 19:30 36.5 C 81 16 110/73 97 Room Air 06/13/22 19:27 37 C 82 18 114/77 97 Room Air Resident Activity Tracking Resident Involvement: Resident Care Provided Care Provided: OB Delivery
[2022-06-14] MEDS: DOCUSATE SODIUM 100 MG CAP PO SCH (08:09)
[2022-06-14] MEDS: FERROUS SULFATE 325 MG TAB PO SCH (08:09)
[2022-06-14] MEDS: PRENATAL VITAMIN 1 TAB PO SCH (08:09)
[2022-06-14] MEDS: IBUPROFEN 600 MG TAB PO PRN (08:09)
[2022-06-14] MEDS ORDERED: bisacodyL 5 MG TABEC PO SCH (20:00)
== END 2022-06-14 10:55 | disposition home or self-care (01) | DRG 806 ==
LOC: 4S1 07:30 → 4E2 06-13 02:26

== ENCOUNTER 2023-05-08 07:33 | Inpatient (IN) ==
--- NOTE | 2023-05-08 08:25 | History & Physical Report ---
"Date of Service May 08, 2023 Assessment & Plan (1) Encounter for induction of labor: Plan: pitocin arom monitor tracing, category 1 Admission and Anticipated Discharge Date Admission Date: May 08, 2023 History of Present Illness Chief Complaint: IOL Primary Care Provider: RENETTA PCP 22 yo at 39w2d admitted for IOL. Factor V Leiden mutation seen by Dr. Rosario. Currently on Heparin 5000U BID. Will require lovenox 6 weeks post-. No acute complaints today. Desires epidural. Denies RUBI, CP, SOB, N/V/D, LE pain. GBS neg, RH+, +fm Allergies Allergy/AdvReac Type Severity Reaction Status Date / Time Cephalosporins Allergy Mild DIFFICULTY Verified 05/07/23 13:45 BREATHING Home Medications Medication Instructions Recorded Confirmed Type vitamin with calcium 1 tab PO DAILY #30 tabs 02/08/22 05/07/23 Rx no.72-iron 27 mg-folic acid 1 mg tablet ( Plus (calcium carbonate)) enoxaparin 40 mg/0.4 mL 40 mg subcut DAILY 11/05/22 05/07/23 History subcutaneous syringe (Lovenox) acetaminophen 500 mg tablet 1,000 mg PO Q6H PRN Fever Or Pain 04/05/23 05/07/23 History (Tylenol Extra Strength) Patient History Medical History Abnormal weight gain Allergic rhinitis Anxiety and depression Asthma Chronic headaches Concussion (12/02/12) Constipation Depression with anxiety Exercise-induced asthma (12/02/12) Factor V Leiden mutation Factor V Leiden mutation complicating heterozygote status GERD without esophagitis Gout History of chicken pox Kidney stone Migraine Nephrolithiasis Oligomenorrhea Polycystic ovarian syndrome Secondary amenorrhea Surgical History S/P appendectomy S/P cholecystectomy S/P ureteral stent placement Family History Mother Hypertension Diabetes Thyroid cancer Grandmother (Maternal) Hypertension Diabetes Thyroid cancer Brother Thyroid cancer Denies family history of Ovarian cancer Breast cancer Colorectal cancer Social History Smoking Status: Never smoker Second Hand Exposure: No; Do You Dip or Chew Tobacco: No; Hx Alcohol Use: No Hx Substance Use: No Preferred Language: Gambian Communication Ability: Effective Visual Impairment: Limited Hearing Ability: Normal Ancillary Specialist Required: No Beliefs That Will Affect Care: None marital status: Single marital status details: barrera Pantoja (29) [phone] Current Living Situation: Significant Other Current Living Situation Comment: boyfriend and daughter current occupational status: unemployed Other Information That Helps Us Care for You: No Feels Safe at Home: Yes Safety Concerns: Feels Safe At This Time Diet: regular Gender Identity: Female Assistive Devices: None Review of Systems reviewed, per HPI Physical Exam Physical Exam: General: patient resting comfortably, NAD, non-toxic in appearance, answers questions appropriately. Skin: warm, dry, intact HEENT: NC/AT, anicteric sclera, conjunctiva without injection, moist mucus membranes Heart: +S1/S2, regular, no m/r/g Lungs: equal air entry bilaterally, no rales/rhonchi/wheezes Abd: soft, NT, gravid uterus Cervical: 3|50|-2 Ext: warm, no clubbing/cyanosis or edema Neuro: speech intact, no facial droop, moving all extremities on command. : FHR baseline ~140, moderate variability, accelerations present, decelerations absent Results & Data Vital Signs (Past 12 Hours) Vital Signs Temp Pulse Resp BP 05/08/23 07:50 36.5 C 18 05/08/23 07:47 99 H 124/81 Supervising Physician Co-Signing Physician Notes Resident Physician Supervision Note: I interviewed and examined the patient. Discussed with Dr. Rubio and agree with findings and plan as documented in the note. Any exceptions or clarifications are listed here: 22yo at 39+wks ega for planned induction due to use of heparin with factor V leiden heterozygote mutation. She denies rom, vb, ctx. +FM. This is short interval . Rh pos, RI, gbs neg. Took her last dose of prophylactic heparin last pm. Exam. Abd soft gravid nt, efw 8-9#. Ext nt calves, no edema. FHTs categ 1. SVE 3/50/-2 mid med. arom clear. pt admitted, labs. epidural if desire. plan 6wks pp lovenox per hematology. Documented By: Lety Garcia MD, FACOG Resident Activity Tracking Resident Involvement: Resident Care Provided Care Provided: Adult Hospital Medicine"
[2023-05-08] MEDS ORDERED: LIDOCAINE 1% LOCAL 20 ML VIAL INFIL PRN (08:56)
[2023-05-08] MEDS ORDERED: OXYTOCIN 30 UNITS/500 ML BAG IV PRN ×3 (08:56→12:51)
[2023-05-08 09:19] LABS: Hematocrit (blood only) 40.6 % (37.0-47.0); Hemoglobin 14.5 g/dl (12.0-16.0); Mean Corpuscular Hemoglobin 30.5 pg (25.0-34.0); Mean Corpuscular Hgb Conc 35.7 g/dL (32.0-36.0); Mean Corpuscular Volume 85.5 fL (80.0-100.0); Mean Platelet Volume 10.5 fL (9.4-12.4); Platelet Count 179 K/uL (130-400); RDW Coefficient of Variation 13.5 % (11.5-14.5); RDW Standard Deviation 41.5 fL (36.4-46.3); Red Blood Count 4.75 M/uL (4.20-5.40)
[2023-05-08] MEDS: LACTATED RINGER'S 1,000 ML IV PRN ×2 (09:24→10:20)
[2023-05-08] MEDS ORDERED: fentaNYL citrate PF 100 MCG/2 ML VIAL ONE (09:52)
[2023-05-08] MEDS ORDERED: ePHEDrine sulfate 50 MG/ML AMP ONE (09:52)
[2023-05-08] MEDS ORDERED: fentANYL 2 MCG/ML BUPIVacaine 0.125%-NSS 100ML BAG ONE (09:53)
[2023-05-08] MEDS ORDERED: LIDOCAINE 2%/EPINEPHRINE 1:200,000 20 ML PF ONE (09:53)
[2023-05-08] MEDS ORDERED: SODIUM CHLORIDE 0.9% PF INJ 10 ML VIAL ONE (09:53)
[2023-05-08] MEDS ORDERED: BUPIVACAINE 0.25% PF 30 ML VIAL ONE (09:53)
--- NOTE | 2023-05-08 10:03 | Anesthesiology Consultation ---
Date of Service May 08, 2023 Assessment & Plan (1) Encounter for pre-operative examination: Chart Review Chart Review: Acceptable Risk for Labor Epidural (comfirm last heparin dose) History Height/Weight Height: 5 ft 9 in Weight: 110.223 kg Allergies Allergy/AdvReac Type Severity Reaction Status Date / Time Cephalosporins Allergy Mild DIFFICULTY Verified 05/07/23 13:45 BREATHING Medications Home Medications Medication Instructions Recorded Confirmed Last Taken vitamin with calcium 1 tab PO DAILY #30 tabs 02/08/22 05/07/23 06/11/22 no.72-iron 27 mg-folic acid 1 mg tablet ( Plus (calcium carbonate)) enoxaparin 40 mg/0.4 mL 40 mg subcut DAILY 11/05/22 05/07/23 04/04/23 09:00 subcutaneous syringe (Lovenox) acetaminophen 500 mg tablet 1,000 mg PO Q6H PRN Fever Or Pain 04/05/23 05/07/23 04/04/23 (Tylenol Extra Strength) Active Medications Generic Name Dose Route Start Last Admin Trade Name Freq PRN Reason Stop Dose Admin Lactated Ringer's 1,000 mls @ 125 mls/hr 05/08/23 08:56 05/08/23 09:30 Lr IV 05/10/23 08:55 999 mls/hr .Q8H PRN Infusion L&D Protocol Protocol Oxytocin 30 units in 500 mls @ 1 mls/hr 05/08/23 08:56 05/08/23 09:24 Pitocin IV 05/10/23 08:55 0.06 units/hr .Q24H PRN 1 mls/hr Labor Induction/Augmentation Administration Protocol 0.06 UNITS/HR Past Medical History Medical History Secondary amenorrhea Polycystic ovarian syndrome Oligomenorrhea Nephrolithiasis Migraine Gout GERD without esophagitis Factor V Leiden mutation Depression with anxiety Constipation Concussion (12/02/12) Chronic headaches Asthma Allergic rhinitis Abnormal weight gain Anxiety and depression History of chicken pox Kidney stone Factor V Leiden mutation complicating heterozygote status Exercise-induced asthma (12/02/12) Past Family History Family History Mother Hypertension Diabetes Thyroid cancer Grandmother (Maternal) Hypertension Diabetes Thyroid cancer Brother Thyroid cancer Denies family history of Ovarian cancer Breast cancer Colorectal cancer Past Surgical History Surgical History S/P ureteral stent placement S/P cholecystectomy S/P appendectomy Social History Smoking Status: Never smoker Do You Dip or Chew Tobacco: No Hx Alcohol Use: No Hx Substance Use: No substance use type: does not use Physical Exam Vital Signs Last Vital Signs Temp 36.5 C 05/08/23 07:50 Pulse 99 H 05/08/23 07:47 Resp 18 05/08/23 07:50 BP 124/81 05/08/23 07:47 Testing Laboratory Results 05/08/23 09:00
[2023-05-08] MEDS ORDERED: BUPIVACAINE 0.25% PF 30 ML VIAL EPI STA (10:44)
[2023-05-08] MEDS ORDERED: SODIUM CHLORIDE 0.9% PF INJ 10 ML VIAL EPI PRN (10:44)
[2023-05-08] MEDS ORDERED: ePHEDrine sulfate 50 MG/ML AMP IV PRN (10:44)
[2023-05-08] MEDS ORDERED: fentANYL 2 MCG/ML BUPIVacaine 0.125%-NSS 100ML BAG EPI PRN (10:44)
[2023-05-08] MEDS ORDERED: LIDOCAINE 2%/EPINEPHRINE 1:200,000 20 ML PF EPI STA (10:44)
[2023-05-08] MEDS ORDERED: NALOXONE HCL 1 MG in SODIUM CHLORIDE 0.9% 1,000 ML IV PRN (10:44)
[2023-05-08] MEDS ORDERED: ONDANSETRON INJ 2 MG/ML 2 ML VIAL IV PRN (10:44)
[2023-05-08] MEDS ORDERED: fentaNYL citrate PF 100 MCG/2 ML VIAL EPI STA (10:44)
[2023-05-08] MEDS ORDERED: BUPIVACAINE 0.25% PF 30 ML VIAL EPI PRN (10:44)
[2023-05-08] MEDS ORDERED: SODIUM CHLORIDE 0.9% PF INJ 10 ML VIAL EPI STA (10:44)
[2023-05-08] MEDS ORDERED: ROPIVACAINE 0.5% PF 5 MG/ML 20 ML VIAL EPI PRN (10:44)
[2023-05-08] MEDS ORDERED: NALOXONE HCL 0.4 MG/1 ML VIAL/CARP IV PRN (10:44)
[2023-05-08] MEDS ORDERED: LIDOCAINE 2% MPF LOCAL 5 ML VIAL EPI PRN (10:44)
[2023-05-08] MEDS ORDERED: fentaNYL citrate PF 100 MCG/2 ML VIAL EPI PRN (10:44)
--- NOTE | 2023-05-08 12:40 | Delivery Summary ---
Vaginal Delivery Summary Date of Service May 08, 2023 Vaginal Delivery Summary The patient dilated to complete and pushed to deliver a viable male Apgars 8 and 9 via over intact perineum. Mouth and nose bulb suctioned at perineum. Loose nuchal x 1 reduced. Shoulders and body delivered with ease. Infant was vigorous and crying at . Cord clamped at 30+ seconds of life and infant to maternal abdomen where the cord was then doubly clamped and cut. Placenta delivered spontaneously and intact, three-vessel cord. Hemostasis achieved with dilute pitocin and uterine massage and drainage of the bladder for approximately 100 cc under sterile conditions. Cervix and sulci intact. EBL 300 cc. Mother and baby stable in recovery. [facility] Vaginal Delivery Charge Delivery Type Details:
[2023-05-08] MEDS ORDERED: bisacodyL 10 MG SUPP PR PRN (12:51)
[2023-05-08] MEDS ORDERED: ACETAMINOPHEN 325 MG TAB PO PRN (12:51)
[2023-05-08] MEDS ORDERED: DIPHTHERIA/TETANUS/PERTUSSIS Vaccine (Tdap, Age 7+yrs) 0.5mL SYR/VL IM ONE (12:51)
[2023-05-08] MEDS ORDERED: OXYTOCIN/LR 1,002 ML IV SCH (12:51)
[2023-05-08] MEDS ORDERED: BENZOCAINE 20% SPRY 85 APPLN/85 GM CAN EXT PRN (12:51)
[2023-05-08] MEDS ORDERED: HYDROCORTISONE ACETATE 25 MG SUPP PR PRN (12:51)
[2023-05-08] MEDS ORDERED: oxyCODONE/ACETAMINOPHEN 5mg/325mg TAB PO PRN (12:51)
--- NOTE | 2023-05-08 15:04 | Anesthesia Procedure Note ---
Date of Service May 08, 2023 Anesthesia Post Epidural Note Vital Signs Vital Signs: Temp Pulse Resp BP Pulse Ox 36.7 C 80 20 107/55 L 100 05/08/23 12:06 05/08/23 14:50 05/08/23 12:06 05/08/23 14:50 05/08/23 12:37 Notes Mental Status: alert / awake / arousable and participated in evaluation Nausea / Vomiting: adequately controlled Pain: adequately controlled Airway Patency, RR, SpO2: stable & adequate BP & HR: stable & adequate Hydration State: stable & adequate Neuraxial Anesthesia: was administered and sensory block is resolving Anesthetic Complications: no major complications apparent Epidural: Removed without complications and With tip intact
[2023-05-08 18:41] VITALS: RESP 18
[2023-05-08] MEDS: IBUPROFEN 600 MG TAB PO PRN (20:45)
[2023-05-08] MEDS: DOCUSATE SODIUM 100 MG CAP PO SCH (20:45)
[2023-05-09] MEDS: IBUPROFEN 600 MG TAB PO PRN ×2 (05:15→09:16)
--- NOTE | 2023-05-09 07:10 | Obstetrical Progress Note ---
Date of Service May 09, 2023 Assessment & Plan (1) care following vaginal delivery: Plan: Doing well Encourage ambulation Pain control Discharge today (2) Factor V Leiden mutation complicating : Plan: Will need lovenox Subq [id number] on discharge(has one wk supply at home) Admission and Anticipated Discharge Date Admission Date: May 08, 2023 Supervising Physician Co-Signing Physician Notes Resident Physician Supervision Note: I was present with Dr. Rubio during the history and exam. I discussed the case with the resident and agree with the findings and plan as documented in the note. Any exceptions or clarifications are listed here: stable, ready to go home. has one wk worth of lovenox at home, sent script for 5 more weeks. eating, voiding, ambulating, breast feeding. abd soft ff 2 down nt, nt calves. ppd#1 s/p , instructions reviewed, f/u 6 wk ppcheck. rhpos/RI Documented By: Lety Garcia MD, FACOG Subjective 22 yo post day 1 s/p Ambulation: ambulating normally Voiding: no voiding problems Passing Gas:: Yes Diet Tolerance:: regular diet Lochia:: Small Feeding Type:: Breast feeding Current Pain Level: mild Resting comfortably this AM in NAD. Denies RUBI, CP, SOB, N/V/D, LE pain/swelling. Desires discharge today Review of Systems Review of Systems: reviewed, per HPI Physical Exam Physical Exam: General: patient resting comfortably, NAD, non-toxic in appearance, answers questions appropriately. Skin: warm, dry, intact HEENT: NC/AT, anicteric sclera, conjunctiva without injection, moist mucus membranes. Heart: +S1/S2, regular, no m/r/g Lungs: equal air entry bilaterally, no rales/rhonchi/wheezes Abd: +BS, soft, NT/ND, uterine fundus firm at umbilicus. Ext: warm, no clubbing/cyanosis or edema, Bentley's neg. Neuro: speech intact, no facial droop, moving all extremities on command. Results & Data Vital Signs (Past 12 Hours) Vital Signs Temp Pulse Resp BP Pulse Ox O2 Del Method 05/09/23 04:06 36.3 C L 74 18 107/69 97 Room Air 05/08/23 23:57 36.6 C 75 18 106/69 97 Room Air 05/08/23 20:44 36.4 C L 81 18 125/78 97 Room Air Resident Activity Tracking Resident Involvement: Resident Care Provided Care Provided: Adult Hospital Medicine
[2023-05-09] MEDS: DOCUSATE SODIUM 100 MG CAP PO SCH (07:43)
[2023-05-09] MEDS ORDERED: PRENATAL VITAMIN 1 TAB PO SCH (08:00)
[2023-05-09 08:31] VITALS: O2SAT 98
[2023-05-09] MEDS ORDERED: ENOXAPARIN INJ 40 MG/0.4 ML SYR SQ SCH (09:00)
[2023-05-09 14:33] VITALS: BP 125/80; PULSE 88; TEMP 97.3
== END 2023-05-09 15:35 | disposition home or self-care (01) | DRG 806 ==
LOC: 4S1 07:33 → 4E2 16:16
DX: Z37.0 Single live birth; Z79.01 Long term (current) use of anticoagulants; O99.13 Other diseases of the blood and blood-forming organs and certain disorders involving the immune mechanism complicating the puerperium; D68.51 Activated protein C resistance; O69.81X0 Labor and delivery complicated by cord around neck, without compression, not applicable or unspecified; Z3A.39 39 weeks gestation of pregnancy; Z88.1 Allergy status to other antibiotic agents

== ENCOUNTER 2024-03-30 07:32 | Inpatient (IN) ==
[2024-03-30] MEDS ORDERED: LIDOCAINE 1% LOCAL 20 ML VIAL INFIL PRN (07:44)
[2024-03-30] MEDS ORDERED: OXYTOCIN 30 UNITS/NSS 30 UNITS/500 ML BAG IV PRN (07:44)
[2024-03-30] MEDS ORDERED: CALCIUM CARBONATE 500 MG CHEWABLE TAB PO PRN (07:44)
[2024-03-30 08:16] LABS: Hematocrit (blood only) 42.3 % (37.0-47.0); Hemoglobin 14.8 g/dl (12.0-16.0); Mean Corpuscular Volume 88.7 fL (80.0-100.0); Mean Platelet Volume 10.1 fL (9.4-12.4); Platelet Count 172 K/uL (130-400); RDW Coefficient of Variation 13.3 % (11.5-14.5); RDW Standard Deviation 43.2 fL (36.4-46.3); Red Blood Count 4.77 M/uL (4.20-5.40); White Blood Count 9.75 K/ul (4.8-10.8)
[2024-03-30 08:43] LABS: INR 0.9 (0.9-1.1); Partial Thromboplastin Time 26 Seconds (21-31)
[2024-03-30] MEDS: OXYTOCIN 30 UNITS/NSS 30 UNITS/500 ML BAG IV PRN ×2 (09:27→19:28)
[2024-03-30] MEDS: LACTATED RINGER'S 1,000 ML IV PRN (09:27)
[2024-03-30] MEDS: PENICILLIN GK 6 MU in DEXTROSE 5% 250 ML IV STA (09:29)
--- NOTE | 2024-03-30 09:58 | History & Physical Report ---
Date of Service March 30, 2024 Assessment & Plan (1) Encounter for induction of labor: (2) 39 weeks gestation of : (3) Factor V Leiden mutation complicating : (4) Short interval between pregnancies complicating , antepartum: (5) History of GBS (group B streptococcus) UTI, currently : Plan admit, iv, labs. fhts categ 1. start pitocin and pcn. plan arom when appropriate. epidural when desires. Admission and Anticipated Discharge Date Admission Date: March 30, 2024 History of Present Illness Chief Complaint: induction of labor Primary Care Provider: Davon Brooks, DO 23yo ( demise at 4m) at 39+wks ega presents to LD for planned induction of labor. Patient denies rom, vb. +FM. No ctx. Has history of fact v leiden heterozygote, on lovenox, switched to heparin at 36wks and last took heparin 10/6 am. PNC c/b 1. Factor V Leiden heterozygote, plan 6wk pp lovenox 2. Short interval 3. GBS pos urine 4. Prior infant demise at 4m SIDS PNL rh pos, ri, gbs pos urine OBH: sab x 1, x 2 GYNH: nl paps no stds Allergies Allergy/AdvReac Type Severity Reaction Status Date / Time No Known Allergies Allergy Unverified 03/30/24 08:32 Home Medications Medication Instructions Recorded Confirmed Type vitamin with calcium 1 tab PO DAILY #30 tabs 02/08/22 03/30/24 Rx no.72-iron 27 mg-folic acid 1 mg tablet ( Plus (calcium carbonate)) heparin (porcine) 5,000 unit/mL 5,000 unit subcut Q12H 03/23/24 03/30/24 History injection solution Patient History Medical History Secondary amenorrhea Polycystic ovarian syndrome Oligomenorrhea Nephrolithiasis Migraine Gout GERD without esophagitis Factor V Leiden mutation Depression with anxiety Constipation Concussion (12/02/12) Chronic headaches Asthma Allergic rhinitis Abnormal weight gain Anxiety and depression History of chicken pox Kidney stone Factor V Leiden mutation complicating heterozygote status Exercise-induced asthma (12/02/12) Surgical History S/P ureteral stent placement S/P cholecystectomy S/P appendectomy Family History Mother Hypertension Diabetes Thyroid cancer Grandmother (Maternal) Hypertension Diabetes Thyroid cancer Brother Thyroid cancer Denies family history of Ovarian cancer Breast cancer Colorectal cancer Social History Smoking Status: Never smoker Second Hand Exposure: No; Do You Dip or Chew Tobacco: No; Hx Alcohol Use: No Hx Substance Use: No Preferred Language: Haitian Communication Ability: Effective Visual Impairment: Limited Hearing Ability: Normal Science Consultant Required: No Beliefs That Will Affect Care: None marital status: Single marital status details: barrera Chiu Scarlett (31) [phone] Current Living Situation: Significant Other Current Living Situation Comment: Aram and daughter current occupational status: unemployed 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 Other Information That Helps Us Care for You: No Feels Safe at Home: Yes Safety Concerns: Feels Safe At This Time Diet: regular Gender Identity: Female Assistive Devices: None Review of Systems as per Subjective / HPI Physical Exam Constitutional: WD/WN, vitals as above Respiratory: normal respiratory effort, lungs clear to auscultation Cardiovascular: Rate/Rhythm: regular rate and regular rhythm Gastrointestinal (Abdomen): soft gravid nt efw 7-8# Musculoskeletal: no edema nontender calves Neurologic: grossly normal Psychiatric: A+Ox3, euthymic affect Genitourinary: Manual OB Exam: + cervical dilation 2 cm, + cervical effacement 50% and + station -2 OB Exam Monitor Tracing: + external FHT monitor used, + external uterine monitor used (irreg), + category I and + normal FHT variability Results & Data Vital Signs (Past 12 Hours) Vital Signs Temp Pulse Resp BP 03/30/24 09:31 80 03/30/24 09:31 116/67 03/30/24 08:18 98.2 F 20 03/30/24 07:53 100 H 131/75 Coding Level of Care Code None Diagnoses Encounter for induction of labor Z34.90 39 weeks gestation of Z3A.39 Factor V Leiden mutation complicating O99.119; D68.51 Short interval between pregnancies complicating , antepartum O09.899 History of GBS (group B streptococcus) UTI, currently O09.899; Z87.440
[2024-03-30] MEDS: PENICILLIN GK 3 MU in DEXTROSE 5% 100 ML IV PRN (13:32)
[2024-03-30] MEDS ORDERED: LIDOCAINE 2% MPF LOCAL 5 ML VIAL EPI PRN (14:43)
[2024-03-30] MEDS ORDERED: NALBUPHINE HCL INJ 10 MG/ML AMP IV PRN (14:43)
[2024-03-30] MEDS ORDERED: diphenhydrAMINE 50 MG/ML VIAL IV PRN (14:43)
[2024-03-30] MEDS ORDERED: ePHEDrine sulfate 50 MG/ML AMP IV PRN (14:43)
[2024-03-30] MEDS ORDERED: fentANYL 2 MCG/ML BUPIVacaine 0.125%-NSS 100ML BAG EPI PRN (14:43)
[2024-03-30] MEDS ORDERED: fentaNYL citrate PF 100 MCG/2 ML VIAL EPI PRN (14:43)
[2024-03-30] MEDS ORDERED: NALOXONE HCL 1 MG in SODIUM CHLORIDE 0.9% 1,000 ML IV PRN (14:43)
[2024-03-30] MEDS ORDERED: NALOXONE HCL 0.4 MG/1 ML VIAL/CARP IV PRN (14:43)
[2024-03-30] MEDS ORDERED: BUPIVACAINE 0.25% PF 30 ML VIAL EPI PRN (14:43)
[2024-03-30] MEDS ORDERED: ROPIVACAINE 0.5% PF 5 MG/ML 20 ML VIAL EPI PRN (14:43)
[2024-03-30] MEDS ORDERED: SODIUM CHLORIDE 0.9% PF INJ 10 ML VIAL EPI PRN (14:43)
--- NOTE | 2024-03-30 14:43 | Anesthesiology Consultation ---
Date of Service March 30, 2024 Assessment & Plan ASA ASA2 Proposed Anesthesia Anesthesia Type: Labor Epidural Risk / Benefits Reviewed With: PT / POA / Parent / Guardian, Accepts Plan and Informed Consent Obtained History Height/Weight Height: 5 ft 9 in Weight: 115.212 kg Allergies Allergy/AdvReac Type Severity Reaction Status Date / Time No Known Allergies Allergy Unverified 03/30/24 08:32 Medications Home Medications Medication Instructions Recorded Confirmed Last Taken vitamin with calcium 1 tab PO DAILY #30 tabs 02/08/22 03/30/24 03/29/24 11:00 no.72-iron 27 mg-folic acid 1 mg tablet ( Plus (calcium carbonate)) heparin (porcine) 5,000 unit/mL 5,000 unit subcut Q12H 03/23/24 03/30/24 03/29/24 11:00 injection solution Active Medications Generic Name Dose Route Start Last Admin Trade Name Freq PRN Reason Stop Dose Admin Oxytocin 30 units in 500 mls @ 13 mls/hr 03/30/24 07:44 03/30/24 13:05 Pitocin 30 Units/Nss IV 04/01/24 07:43 0.78 units/hr .Q24H PRN 13 mls/hr Labor Induction/Augmentation Titration Protocol 0.78 UNITS/HR Lactated Ringer's 1,000 mls @ 125 mls/hr 03/30/24 07:44 03/30/24 09:27 Lr IV 04/01/24 07:43 125 mls/hr .Q8H PRN Administration L&D Protocol Protocol Penicillin G Potassium 3 mu/ 106 mls @ 100 mls/hr 03/30/24 10:50 03/30/24 13:32 Dextrose IV 04/09/24 10:49 100 mls/hr Q4H PRN Administration GBS(+) Until Delivery Past Medical History Medical History Secondary amenorrhea Polycystic ovarian syndrome Oligomenorrhea Nephrolithiasis Migraine Gout GERD without esophagitis Factor V Leiden mutation Depression with anxiety Constipation Concussion (12/02/12) Chronic headaches Asthma Allergic rhinitis Abnormal weight gain History of chicken pox Kidney stone Exercise / Class Metabolic Activity II 4-5 Yardwork/Stairs/Walk up hill Past Family History Family History Mother Hypertension Diabetes Thyroid cancer Grandmother (Maternal) Hypertension Diabetes Thyroid cancer Brother Thyroid cancer Denies family history of Ovarian cancer Breast cancer Colorectal cancer Past Surgical History Surgical History S/P ureteral stent placement S/P cholecystectomy S/P appendectomy Past Anesthesia History No Hx of Anesthesia Complications and No Family Hx of Anesthesia Complications History of PONV No Hx of PONV and No Hx of Motion Sickness Social History Smoking Status: Never smoker Do You Dip or Chew Tobacco: No Hx Alcohol Use: No Hx Substance Use: No substance use type: does not use Review of Systems denies fever/cough/ colds/ chest pain/ SOB/ JL denies JL Physical Exam Vital Signs Last Vital Signs Temp 36.8 C 03/30/24 11:36 Pulse 68 03/30/24 15:09 Resp 20 03/30/24 11:36 BP 125/59 L 03/30/24 15:09 Pulse Ox 94 03/30/24 15:09 ENMT Mouth: no TMJ abnormality and no dentition abnormality Thyromental Distance: > or= 3.5 Finger Breadths Mallampati Class: II Neck neck extension not limited Respiratory normal respiratory effort; no respiratory distress Auscultation: lungs clear to auscultation bilaterally Cardiovascular Rate/Rhythm: regular rate and regular rhythm Neurologic moves all extremities Psychiatric Orientation: alert and oriented x 3 Testing Laboratory Results 03/30/24 07:52 PT 10.0 Seconds (9.0-12.0) 03/30/24 08:05 INR 0.9 (0.9-1.1) 03/30/24 08:05 APTT 26 Seconds (21-31) 03/30/24 08:05 Blood Type Cancelled 03/30/24 07:52 Blood Type O Positive 03/30/24 07:52 Antibody Screen Cancelled 03/30/24 07:52 Antibody Screen NEGATIVE 03/30/24 07:52
[2024-03-30] MEDS: BUPIVACAINE 0.25% PF 30 ML VIAL ONE (15:07)
[2024-03-30] MEDS: fentANYL 2 MCG/ML BUPIVacaine 0.125%-NSS 100ML BAG ONE (15:07)
[2024-03-30] MEDS: LIDOCAINE 2%/EPINEPHRINE 1:200,000 20 ML PF ONE (15:07)
[2024-03-30] MEDS: fentaNYL citrate PF 100 MCG/2 ML VIAL ONE (15:07)
[2024-03-30] MEDS: SODIUM CHLORIDE 0.9% PF INJ 10 ML VIAL ONE (16:46)
[2024-03-30] MEDS: ePHEDrine sulfate 50 MG/ML AMP ONE (16:46)
[2024-03-30] MEDS: fentaNYL citrate PF 100 MCG/2 ML VIAL EPI STA (16:46)
[2024-03-30] MEDS: BUPIVACAINE 0.25% PF 30 ML VIAL EPI STA (16:46)
[2024-03-30] MEDS: LIDOCAINE 2%/EPINEPHRINE 1:200,000 20 ML PF EPI STA (16:47)
[2024-03-30] MEDS: SODIUM CHLORIDE 0.9% PF INJ 10 ML VIAL EPI STA (16:47)
[2024-03-30] MEDS: ONDANSETRON INJ 2 MG/ML 2 ML VIAL IV PRN (17:11)
--- NOTE | 2024-03-30 18:33 | Delivery Summary ---
Vaginal Delivery Summary Date of Service March 30, 2024 Vaginal Delivery Summary Patient induced as she is on blood thinners at term for allowance of regional anesthetic Pitocin was started she requested epidural artificial rupture membranes for clear fluid shortly became fully dilated afterwards and pushed over 1 contraction but delivering a baby in occiput anterior position after delivery of the head gentle traction on the baby no excessive force easy delivery live vigorous female no nuchal cord after delivery cord was clamped and cut cord blood obtained placenta removed with traction IV Pitocin started there was no tearing QBL was 30 mL note patient will start Lovenox tomorrow 40 mg daily [facility] Vaginal Delivery Charge Delivery Type Details:
[2024-03-30] MEDS ORDERED: bisacodyL 10 MG SUPP PR PRN (18:36)
[2024-03-30] MEDS ORDERED: oxyCODONE/ACETAMINOPHEN 5mg/325mg TAB PO PRN (18:36)
[2024-03-30] MEDS ORDERED: HYDROCORTISONE ACETATE 25 MG SUPP PR PRN (18:36)
[2024-03-30] MEDS ORDERED: BENZOCAINE 20% SPRY 85 APPLN/85 GM CAN EXT PRN (18:36)
--- NOTE | 2024-03-30 19:08 | Anesthesia Procedure Note ---
Date of Service March 30, 2024 Anesthesia Post Epidural Note Vital Signs Vital Signs: Temp Pulse Resp BP Pulse Ox 36.7 C 61 18 132/65 95 03/30/24 18:35 03/30/24 18:54 03/30/24 18:50 03/30/24 18:54 03/30/24 18:26 Notes Mental Status: alert / awake / arousable and participated in evaluation Nausea / Vomiting: adequately controlled Pain: adequately controlled Airway Patency, RR, SpO2: stable & adequate BP & HR: stable & adequate Hydration State: stable & adequate Neuraxial Anesthesia: was administered and sensory block resolved Anesthetic Complications: no major complications apparent and Pt Satisfied with anesthetic care Epidural: Removed without complications and With tip intact Notes: pt will be 12 hrs post procedure at ~ 4am 03/31. can restart qday lovenox at that time. communicated to dr espana
[2024-03-30] MEDS: DIPHTHER/TETAN/PERTUS Vaccine (Tdap, Adol/Adult) 0.5mL IM ONE (19:33)
[2024-03-30] MEDS: DOCUSATE SODIUM 100 MG CAP PO SCH (21:11)
[2024-03-31] MEDS: ACETAMINOPHEN 325 MG TAB PO PRN (04:43)
[2024-03-31 06:29] LABS: Hemoglobin 13.8 g/dl (12.0-16.0); Mean Corpuscular Hemoglobin 30.7 pg (25.0-34.0); Mean Corpuscular Hgb Conc 34.5 g/dL (32.0-36.0); Mean Corpuscular Volume 89.1 fL (80.0-100.0); Mean Platelet Volume 10.4 fL (9.4-12.4); Platelet Count 135 K/uL (130-400); RDW Coefficient of Variation 13.6 % (11.5-14.5); RDW Standard Deviation 43.7 fL (36.4-46.3); Red Blood Count 4.49 M/uL (4.20-5.40); White Blood Count 11.27 K/ul (4.8-10.8)
--- NOTE | 2024-03-31 06:44 | Obstetrical Progress Note ---
Date of Service March 31, 2024 Assessment & Plan (1) Encounter for assessment: Plan: Patient is PPD 1 s/p and doing well - Eating well, voiding well, ambulating well - vitals reviewed and within normal limits - pain well controlled with analgesics - OOB, ambulation, diet progression as tolerated - Blood type: O+, GBS pos, rubella immune - Plan to discharge today - After discharge, 6 week follow up with OB Admission and Anticipated Discharge Date Admission Date: March 30, 2024 Supervising Physician Co-Signing Physician Notes Resident Physician Supervision Note: I was present with Dr. Tenorio during the history and exam. I discussed the case with the resident and agree with the findings and plan as documented in the note. Any exceptions or clarifications are listed here:Note Lovenox to be sent to pharmacy Documented By: Noah Reyes MD, FACOG Subjective 23 yo post- day 1 s/p Ambulation: ambulating normally Voiding: no voiding problems Passing Gas:: Yes Diet Tolerance:: regular diet Lochia:: Small Feeding Type:: breast feeding Current Pain Level:5/10 Resting comfortably this AM in NAD. Denies RUBI, CP, SOB, N/V/D, LE pain/swelling. Physical Exam Physical Exam: General: patient resting comfortably, NAD, non-toxic in appearance, answers questions appropriately. Skin: warm, dry, intact HEENT: NC/AT, anicteric sclera, conjunctiva without injection, moist mucus membranes. Heart: +S1/S2, regular, no m/r/g Lungs: equal air entry bilaterally, no rales/rhonchi/wheezes Abd: +BS, soft, NT/ND, uterine fundus firm at umbilicus Ext: warm, no clubbing/cyanosis or edema, Bentley's neg. Neuro: nonfocal, speech intact, no facial droop, moving all extremities. Results & Data Vital Signs (Past 12 Hours) Vital Signs Temp Pulse Pulse Resp BP BP Pulse Ox 03/31/24 04:00 36.7 C 84 18 110/75 96 03/31/24 00:10 36.9 C 75 18 100/64 97 03/30/24 21:05 36.5 C 71 16 129/78 98 03/30/24 20:39 69 03/30/24 20:39 115/56 L 03/30/24 20:35 18 03/30/24 20:24 74 03/30/24 20:24 105/56 L 03/30/24 20:09 68 03/30/24 20:09 117/58 L 03/30/24 20:05 18 03/30/24 19:55 72 03/30/24 19:55 119/54 L 03/30/24 19:39 82 03/30/24 19:39 123/78 03/30/24 19:35 18 03/30/24 19:24 61 03/30/24 19:24 113/76 03/30/24 19:20 18 03/30/24 19:10 64 03/30/24 19:10 110/67 03/30/24 19:05 36.4 C L 18 03/30/24 19:05 03/30/24 18:54 61 03/30/24 18:54 132/65 03/30/24 18:50 18 O2 Del Method 03/31/24 04:00 Room Air 03/31/24 00:10 Room Air 03/30/24 21:05 Room Air 03/30/24 20:39 03/30/24 20:39 03/30/24 20:35 03/30/24 20:24 03/30/24 20:24 03/30/24 20:09 03/30/24 20:09 03/30/24 20:05 03/30/24 19:55 03/30/24 19:55 03/30/24 19:39 03/30/24 19:39 03/30/24 19:35 03/30/24 19:24 03/30/24 19:24 03/30/24 19:20 03/30/24 19:10 03/30/24 19:10 03/30/24 19:05 03/30/24 19:05 Room Air 03/30/24 18:54 03/30/24 18:54 03/30/24 18:50 Resident Activity Tracking Resident Involvement: Resident Care Provided Care Provided: OB Delivery (1) Encounter for assessment visit type: exam and care immediately after delivery Qualified Code(s): Z39.0 - Encounter for care and examination of mother immediately after delivery
[2024-03-31] MEDS: ENOXAPARIN INJ 40 MG/0.4 ML SYR SQ SCH (06:45)
[2024-03-31] MEDS: IBUPROFEN 600 MG TAB PO PRN (08:00)
[2024-03-31] MEDS: PRENATAL VITAMIN 1 TAB PO SCH (08:00)
[2024-03-31 09:47] VITALS: O2SAT 98
[2024-03-31 16:54] VITALS: BP 118/79; PULSE 89; RESP 22; TEMP 97.9
[2024-03-31] MEDS ORDERED: bisacodyL 5 MG TABEC PO SCH (20:00)
== END 2024-03-31 20:00 | disposition home or self-care (01) | DRG 806 ==
LOC: 4S1 07:35 → 4E2 20:50